=== PATIENT | female | born 1930 | race Caucasian/White ===

== ENCOUNTER 2016-11-21 07:56 | Inpatient (IN) | payer OTHER, MEDICAID ==
[~2016-11-21] VITALS: Ht 157.5 cm; Wt 63.3 kg
[2016-11-21] MEDS ORDERED: GOOD NEIGHBOR PHAR2% VG (09:36)
[2016-11-21] MEDS ORDERED: COLACE100 MG PO (09:37)
[2016-11-21] MEDS ORDERED: ELIQUIS5 MG PO (09:37)
[2016-11-21] MEDS ORDERED: LACOO OU (09:37)
[2016-11-21] MEDS ORDERED: CLARITIN10 MG PO (09:38)
[2016-11-21] MEDS ORDERED: FUROSEMIDE40 MG PO (09:38)
[2016-11-21] MEDS ORDERED: FLONS (09:38)
[2016-11-21] MEDS ORDERED: LISINOPRIL2.5 MG PO (09:38)
[2016-11-21] MEDS ORDERED: POTASSIUM CHLO25 MEQ PO (09:39)
[2016-11-21] MEDS ORDERED: PANTOPRAZOLE SO40 M1 PO (09:39)
[2016-11-21] MEDS ORDERED: NITROFURANTOIN100 MG PO (09:39)
[2016-11-21] MEDS ORDERED: PROPRANOLOL HCL20 MG PO (09:39)
[2016-11-21] MEDS ORDERED: QUETIAPINE FUMA50 M1 PO (09:39)
[2016-11-21 09:40] LABS: CALCIUM 8.8 mg/dL (8.5-10.1); CARBON DIOXIDE 32.9 mmol/L (21-32); CHLORIDE SERUM 98 mmol/L (98-107); CREATININE SERUM 1.2 mg/dL (0.6-1.0); GLUCOSE SERUM 132 mg/dL (74-106); POTASSIUM SERUM 3.8 mmol/L (3.5-5.1); SODIUM SERUM 135 mmol/L (136-145)
[2016-11-21] MEDS ORDERED: ZOLOFT100 MG PO (09:40)
[2016-11-21 09:43] LABS: BASOPHIL % 0.2 % (0-2); PLATELET COUNT 199 x10^3mcL (130-400)
[2016-11-21 09:44] LABS: ALBUMIN 3.3 g/dL (3.4-5.0); ALKALINE PHOSPHATASE 117 U/L (46-116); ALT/SGPT 15 U/L (14-59); AST/SGOT 19 U/L (15-37); BILIRUBIN TOTAL 0.45 mg/dL (0.20-1.00); CHOLESTEROL 188 mg/dL (<200); HDL CHOLESTEROL 40 mg/dL (40-60); PHOSPHOROUS 3.7 mg/dL (2.5-4.9); TOTAL PROTEIN, SERUM 7.7 g/dL (6.4-8.2); URIC ACID 6.6 mg/dL (2.6-6.0)
[2016-11-21 09:51] LABS: RED CELL DISTRIBUTION WIDTH 17.1 % (11.5-14.5)
[2016-11-21 10:27] LABS: microscopic required? YES
[2016-11-21 10:28] LABS: urine erythrocyte 1+ (NEGATIVE)
[2016-11-21 10:42] LABS: CHOLESTEROL/HDL RATIO 4.7; MAGNESIUM 2.3 mg/dL (1.8-2.4)
[2016-11-21 10:49] LABS: FREE T4 1.28 ng/dL (0.76-1.46); FREE THYROXINE INDEX 2.5 ug/dL (1.4-4.5); T4(THYROXINE) 7.3 ug/dL (4.7-13.3)
[2016-11-21 14:11] LABS: T3 TOTAL 0.79 ng/mL
[2016-11-21 15:44] VITALS: BP 143/66
[2016-11-21 17:36] VITALS: BP 100/50
[2016-11-22 05:46] VITALS: BP 104/39
[2016-11-22 06:01] LABS: BASOPHIL % 0.3 % (0-2); PLATELET COUNT 158 x10^3mcL (130-400)
[2016-11-22 06:38] LABS: CARBON DIOXIDE 32.2 mmol/L (21-32); CHLORIDE SERUM 101 mmol/L (98-107); CREATININE SERUM 1.5 mg/dL (0.6-1.0); GLUCOSE SERUM 91 mg/dL (74-106); MAGNESIUM 2.1 mg/dL (1.8-2.4); PHOSPHOROUS 5.1 mg/dL (2.5-4.9); SODIUM SERUM 139 mmol/L (136-145)
[2016-11-22 11:30] VITALS: BP 125/42
[2016-11-22 12:33] VITALS: BP 118/34
[2016-11-22 18:00] VITALS: BP 116/50
[2016-11-22 21:13] VITALS: BP 89/42
[2016-11-23 05:48] VITALS: BP 101/49
[2016-11-23 07:25] LABS: BASOPHIL % 0.4 % (0-2); PLATELET COUNT 147 x10^3mcL (130-400)
[2016-11-23 07:37] LABS: CALCIUM 7.6 mg/dL (8.5-10.1); CARBON DIOXIDE 27.6 mmol/L (21-32); CHLORIDE SERUM 104 mmol/L (98-107); CREATININE SERUM 1.6 mg/dL (0.6-1.0); GLUCOSE SERUM 118 mg/dL (74-106); MAGNESIUM 1.8 mg/dL (1.8-2.4); PHOSPHOROUS 4.3 mg/dL (2.5-4.9); POTASSIUM SERUM 3.7 mmol/L (3.5-5.1); SODIUM SERUM 139 mmol/L (136-145); rbc morphology (normal/abnorm) ABNORMAL (NORMAL)
[2016-11-23 10:15] VITALS: BP 108/49
[2016-11-23 13:07] VITALS: BP 128/55
[2016-11-23 14:30] VITALS: BP 85/51
[2016-11-23 16:45] VITALS: Ht 157.5 cm; Wt 63.3 kg
[2016-11-23 18:04] VITALS: BP 105/44
[2016-11-23 21:30] VITALS: BP 110/49
[2016-11-23 22:03] LABS: BASOPHIL % 0.5 % (0-2); PLATELET COUNT 138 x10^3mcL (130-400)
[2016-11-23 22:08] LABS: RED CELL DISTRIBUTION WIDTH 17.9 % (11.5-14.5)
[2016-11-23 22:21] LABS: ovalocyte/elliptocyte 1+; rbc morphology (normal/abnorm) ABNORMAL (NORMAL)
[2016-11-24 05:38] VITALS: BP 89/48
[2016-11-24 09:30] LABS: CALCIUM 7.6 mg/dL (8.5-10.1); CARBON DIOXIDE 28.6 mmol/L (21-32); CHLORIDE SERUM 106 mmol/L (98-107); CREATININE SERUM 1.4 mg/dL (0.6-1.0); GLUCOSE SERUM 122 mg/dL (74-106); MAGNESIUM 1.9 mg/dL (1.8-2.4); PHOSPHOROUS 3.5 mg/dL (2.5-4.9); POTASSIUM SERUM 3.7 mmol/L (3.5-5.1); SODIUM SERUM 140 mmol/L (136-145)
[2016-11-24 09:42] LABS: BASOPHIL % 0.6 % (0-2); PLATELET COUNT 133 x10^3mcL (130-400)
[2016-11-24 09:53] LABS: RED CELL DISTRIBUTION WIDTH 17.4 % (11.5-14.5)
[2016-11-24 10:00] VITALS: BP 100/41
[2016-11-24 10:28] LABS: ovalocyte/elliptocyte 1+; rbc morphology (normal/abnorm) ABNORMAL (NORMAL)
[2016-11-24 17:45] VITALS: BP 119/54
[2016-11-24 20:38] VITALS: BP 119/52
[2016-11-25 05:57] VITALS: BP 116/39
[2016-11-25 06:22] LABS: BASOPHIL % 0.5 % (0-2); PLATELET COUNT 134 x10^3mcL (130-400)
[2016-11-25 06:33] LABS: CALCIUM 7.6 mg/dL (8.5-10.1); CARBON DIOXIDE 27.8 mmol/L (21-32); CHLORIDE SERUM 107 mmol/L (98-107); CREATININE SERUM 1.4 mg/dL (0.6-1.0); GLUCOSE SERUM 89 mg/dL (74-106); MAGNESIUM 1.8 mg/dL (1.8-2.4); PHOSPHOROUS 3.4 mg/dL (2.5-4.9); POTASSIUM SERUM 3.9 mmol/L (3.5-5.1); SODIUM SERUM 142 mmol/L (136-145)
[2016-11-25 09:29] VITALS: BP 121/52
[2016-11-25 13:20] VITALS: BP 144/58
[2016-11-25 13:40] VITALS: BP 144/58
[2016-11-25] MEDS ORDERED: FER300 PO (13:54)
[2016-11-25] MEDS ORDERED: BACO TOP (13:55)
[2016-11-25] MEDS ORDERED: VITC PO (13:55)
[2016-11-25] MEDS ORDERED: HIBICLENS118 ML TOP (13:56)
[2016-11-25 17:02] VITALS: BP 140/52
[2016-11-25] MEDS ORDERED: ELIQUIS2.5 MG PO (19:01)
[2016-11-25 22:16] VITALS: BP 137/68
[2016-11-26 06:28] VITALS: BP 111/52
[2016-11-26 07:47] LABS: BASOPHIL % 0.4 % (0-2); PLATELET COUNT 145 x10^3mcL (130-400)
[2016-11-26 07:59] LABS: RED CELL DISTRIBUTION WIDTH 18.3 % (11.5-14.5)
[2016-11-26 08:03] LABS: CALCIUM 7.6 mg/dL (8.5-10.1); CHLORIDE SERUM 107 mmol/L (98-107); CREATININE SERUM 1.5 mg/dL (0.6-1.0); GLUCOSE SERUM 87 mg/dL (74-106); MAGNESIUM 1.8 mg/dL (1.8-2.4); PHOSPHOROUS 3.6 mg/dL (2.5-4.9); POTASSIUM SERUM 3.5 mmol/L (3.5-5.1); SODIUM SERUM 143 mmol/L (136-145)
[2016-11-26 10:17] VITALS: BP 144/56
[2016-11-26 18:11] VITALS: BP 142/62
[2016-11-26 21:37] VITALS: BP 132/62
[2016-11-27 06:08] VITALS: BP 132/54
[2016-11-27 06:22] LABS: BASOPHIL % 0.7 % (0-2); PLATELET COUNT 153 x10^3mcL (130-400)
[2016-11-27 06:23] LABS: CARBON DIOXIDE 32.3 mmol/L (21-32); CHLORIDE SERUM 103 mmol/L (98-107); CREATININE SERUM 1.3 mg/dL (0.6-1.0); GLUCOSE SERUM 85 mg/dL (74-106); PHOSPHOROUS 3.5 mg/dL (2.5-4.9); POTASSIUM SERUM 3.7 mmol/L (3.5-5.1); SODIUM SERUM 140 mmol/L (136-145)
[2016-11-27 06:45] LABS: RED CELL DISTRIBUTION WIDTH 18.5 % (11.5-14.5)
[2016-11-27 06:46] LABS: rbc morphology (normal/abnorm) ABNORMAL (NORMAL)
[2016-11-27 10:45] VITALS: BP 137/68
[2016-11-27 18:08] VITALS: BP 138/97
[2016-11-27 22:03] VITALS: BP 146/69
[2016-11-28] VITALS (8 sets, daily range): BP systolic 130–157; BP diastolic 53–71
[2016-11-28 06:55] LABS: BASOPHIL % 0.7 % (0-2); PLATELET COUNT 153 x10^3mcL (130-400)
[2016-11-28 06:56] LABS: RED CELL DISTRIBUTION WIDTH 18.5 % (11.5-14.5)
[2016-11-28 06:57] LABS: rbc morphology (normal/abnorm) ABNORMAL (NORMAL)
[2016-11-28 06:59] LABS: CALCIUM 7.8 mg/dL (8.5-10.1); CARBON DIOXIDE 29.9 mmol/L (21-32); CHLORIDE SERUM 101 mmol/L (98-107); CREATININE SERUM 1.2 mg/dL (0.6-1.0); GLUCOSE SERUM 75 mg/dL (74-106); PHOSPHOROUS 3.7 mg/dL (2.5-4.9); POTASSIUM SERUM 3.5 mmol/L (3.5-5.1); SODIUM SERUM 136 mmol/L (136-145)
[2016-11-29 06:45] VITALS: BP 154/65
[2016-11-29 06:53] LABS: BASOPHIL % 0.4 % (0-2); PLATELET COUNT 165 x10^3mcL (130-400); RED CELL DISTRIBUTION WIDTH 20.5 % (11.5-14.5)
[2016-11-29 06:55] LABS: rbc morphology (normal/abnorm) ABNORMAL (NORMAL)
[2016-11-29 07:22] LABS: ALKALINE PHOSPHATASE 84 U/L (46-116); ALT/SGPT 3 U/L (14-59); AST/SGOT 16 U/L (15-37); CALCIUM 7.8 mg/dL (8.5-10.1); CARBON DIOXIDE 31.6 mmol/L (21-32); CHLORIDE SERUM 102 mmol/L (98-107); CREATININE SERUM 1.1 mg/dL (0.6-1.0); GLUCOSE SERUM 88 mg/dL (74-106); SODIUM SERUM 140 mmol/L (136-145)
[2016-11-29 07:25] LABS: MAGNESIUM 1.9 mg/dL (1.8-2.4); PHOSPHOROUS 3.1 mg/dL (2.5-4.9)
[2016-11-29 07:31] LABS: ALBUMIN 2.4 g/dL (3.4-5.0)
[2016-11-29 07:32] LABS: POTASSIUM SERUM 2.9 mmol/L (3.5-5.1)
[2016-11-29 09:40] VITALS: BP 143/55
[2016-11-29 13:50] VITALS: BP 129/63
[2016-11-29 14:34] VITALS: BP 129/63
[2016-11-29] MEDS ORDERED: METOPROLOL TART25 M1 PO (15:40)
[2016-11-29] MEDS ORDERED: LIPI10 PO (15:41)
[2016-11-29] MEDS ORDERED: ECO81 PO (15:42)
[2016-11-29] MEDS ORDERED: ULT50 PO (15:59)
[2016-11-29 16:22] LABS: CALCIUM 7.9 mg/dL (8.5-10.1); CARBON DIOXIDE 31.3 mmol/L (21-32); CHLORIDE SERUM 103 mmol/L (98-107); GLUCOSE SERUM 112 mg/dL (74-106); POTASSIUM SERUM 4.9 mmol/L (3.5-5.1); SODIUM SERUM 138 mmol/L (136-145)
== END 2016-11-29 18:30 | DRG 480 ==
LOC: ED 07:56 → DU 10:04 → MU 10:04 → DU 10:37 → MU 11-23 09:18 → DU 11-29 05:24
PROVIDERS: Emergency Medicine; Family Medicine; Internal Medicine Cardiovascular Disease; ADMIT Family Medicine
PROC: 0QS704Z Reposition Left Upper Femur with Internal Fixation Device, Open Approach (ICD-10-PCS; principal; 2016-11-22 08:00)
PROC: 30233N1 Transfusion of Nonautologous Red Blood Cells into Peripheral Vein, Percutaneous Approach (ICD-10-PCS; 2016-11-23)
DX: S72.142A Displaced intertrochanteric fracture of left femur, initial encounter for closed fracture (principal); N17.0 Acute kidney failure with tubular necrosis; I50.43 Acute on chronic combined systolic (congestive) and diastolic (congestive) heart failure; J69.0 Pneumonitis due to inhalation of food and vomit; I21.4 Non-ST elevation (NSTEMI) myocardial infarction; I13.0 Hypertensive heart and chronic kidney disease with heart failure and stage 1 through stage 4 chronic kidney disease, or unspecified chronic kidney disease; E87.0 Hyperosmolality and hypernatremia; E44.0 Moderate protein-calorie malnutrition; N39.0 Urinary tract infection, site not specified; N18.3 Chronic kidney disease, stage 3 (moderate); I25.10 Atherosclerotic heart disease of native coronary artery without angina pectoris; D50.9 Iron deficiency anemia, unspecified; E87.6 Hypokalemia; J44.9 Chronic obstructive pulmonary disease, unspecified; F41.8 Other specified anxiety disorders; M81.0 Age-related osteoporosis without current pathological fracture; H26.9 Unspecified cataract; E78.5 Hyperlipidemia, unspecified; I25.2 Old myocardial infarction; Z68.23 Body mass index [BMI] 23.0-23.9, adult; W05.0XXA Fall from non-moving wheelchair, initial encounter; Y92.238 Other place in hospital as the place of occurrence of the external cause; Z66 Do not resuscitate; Z86.711 Personal history of pulmonary embolism; F03.90 Unspecified dementia, unspecified severity, without behavioral disturbance, psychotic disturbance, mood disturbance, and anxiety; Z86.718 Personal history of other venous thrombosis and embolism
CPT/HCPCS: 82962; 83880; 84439; 94150; 97110-GP; 97116-GP; 97530-GP; C1713; J0690; J1170; J1580; J1885; J1940; J1956; J2060; J2175; J2250; J2405; J2543; J2704; J3010; J3480; J3490; J7030; J7040; J7050; J7620; P9016; Q0092; Q0163; Q9967